=== PATIENT | male | born 1955 | race Caucasian/White ===

== ENCOUNTER 2017-07-06 05:53 | Day surgery (SDC) | payer MEDICARE, MEDICAID ==
[~2017-07-06 05:53] MED LIST: Dextrose 5%-0.45% NaCl 1,000 ML IV SCH; Sodium Chloride 0.9% 10 ML Syringe FLUSH PRN
[2017-07-06] MEDS ORDERED: fentaNYL 100 MCG/2 ML SDV IV ONE ×3 (05:54→07:03)
[2017-07-06] MEDS ORDERED: Midazolam 1 MG/ML 2 ML SDV IV ONE ×3 (05:54→07:04)
[2017-07-06] MEDS ORDERED: Sodium Chloride 0.9% 10 ML Syringe FLUSH PRN (06:00)
[2017-07-06] MEDS ORDERED: Dextrose 5%-0.45% NaCl 1,000 ML IV SCH (06:00)
[2017-07-06] MEDS ORDERED: fentaNYL 100 MCG/2 ML SDV ONE (06:13)
[2017-07-06] MEDS ORDERED: Midazolam 1 MG/ML 2 ML SDV ONE (06:13)
--- NOTE | 2017-07-06 07:44 | OR ---
DATE: 07/06/2017 PROCEDURES: Esophagogastroduodenoscopy and multiple pinch biopsies. INSTRUMENT USED: GIF-Q180 Olympus video panendoscope. PREMEDICATIONS: No oral topical anesthesia used. Fentanyl 100 mcg intravenous, Versed 2 mg intravenous. Procedure was done under pulse oximetry, BP recording, and classroom monitor. INDICATION: The patient with chronic alcoholism and persistent upper abdominal pain, unexplained, not responsive to medical measures. Esophagogastroduodenoscopy is performed for detection of any active erosive lesions, Brito esophagus and/or malignancy also under consideration, H. pylori status to be determined, detection to be made for any presence of varices, endoscopic hemostasis therapy if needed. DESCRIPTION OF PROCEDURE: The scope was passed with ease. Adequate visualization of the esophagus was made from proximal to distal areas. No upper esophageal lesions identified. No distal esophageal stricture. No uphill or downhill esophageal varices. No Claudia-Al tear. Grade A erosive changes were noted by Pageton criteria. No esophageal polyp or tumor mass identified. Z-line was seen at around 39 cm distal to the oral verge, configuration consistent with grade 1 by ZAP classification. No proximal gastric varices noted. Gastric fundus examination by retroflexion showed no polypoid lesions. No gastric ulcer, malignant mass, or vascular ectasia identified. Duodenal bulb showed no ulcer. Visualized second part of the duodenum was unremarkable. Multiple pinch biopsies were taken from the gastric antrum and proximal body and sent for PyloriTek test for H. pylori, and if negative in an hour, tissues to be sent for histopathology. No bleeding was noted from any of the visualized areas at the completion of examination. Photographs were taken of the duodenal bulb, gastric antrum, fundus, and distal esophagus. IMPRESSION: Grade A gastroesophageal reflux disease. The patient tolerated the procedure well. [facility] /[id number]
[2017-07-06 10:24] VITALS: BP 98/62
== END 2017-07-06 09:16 | disposition home or self-care (01) ==
LOC: DL.ENDO 05:53
PROVIDERS: ATTEND Internal Medicine Gastroenterology
DX: K29.50 Unspecified chronic gastritis without bleeding (principal); K21.9 Gastro-esophageal reflux disease without esophagitis; Z72.0 Tobacco use; Z98.890 Other specified postprocedural states; F10.20 Alcohol dependence, uncomplicated
CPT/HCPCS: 43239; 87077; J2250; J3010; J7042; 88305